=== PATIENT | female | born 1980 | race Asian ===

== ENCOUNTER → 2016-07-26 | Outpatient (CLI) | payer BC ==
[~2016-07-26] MED LIST: FERR-63; PREN-55; [UNRECOGNIZED DRUG - CODE]
== END | disposition home or self-care (01) ==
LOC: RAD 09:17
PROVIDERS: ATTEND Internal Medicine Geriatric Medicine
DX: M54.9 Dorsalgia, unspecified (principal)
CPT/HCPCS: 72100

== ENCOUNTER → 2016-09-01 | Outpatient (CLI) | payer BC ==
[2016-09-01 09:20] LABS: CHLORIDE 106 mEq/L (98-107); INDEX HEMOLYSI 1 (1-3); INDEX ICTERIC 1 (1-4); INDEX LIPEMIC 1 (1-3)
[2016-09-01 09:29] LABS: ALANINE AMINOTRANSFERASE 22 IU/L (13-61); ALBUMIN 3.3 g/dL (3.4-5.0); ANION GAP 13; CALCIUM 8.6 mg/dL (8.5-10.1); CARBON DIOXIDE 25 mEq/L (21-32); HDL CHOLESTEROL 60 mg/dL (40-59); LDL CHOLESTEROL 119 mg/dL (5-100); TRIGLYCERIDE 143 mg/dL (0-150); UREA NITROGEN BLOOD 12 mg/dL (7-21); eGFR > 60 mL/min (>60)
== END | disposition home or self-care (01) ==
LOC: LAB 08:44
PROVIDERS: ATTEND Internal Medicine Geriatric Medicine
DX: E66.01 Morbid (severe) obesity due to excess calories (principal)
CPT/HCPCS: 36415; 80053; 80061; 83036

== ENCOUNTER → 2016-12-06 | Outpatient (CLI) | payer BC ==
[2016-12-06 15:25] LABS: CLARITY URINE TURBID (CLEAR); COLOR URINE YELLOW (YELLOW); GLUCOSE URINE NEGATIVE (NEGATIVE); KETONES URINE NEGATIVE (NEGATIVE); LEUKOCYTE ESTERASE URINE 3+ (NEGATIVE); NITRITE URINE POSITIVE (NEGATIVE); OCCULT BLOOD URINE 3+ (NEGATIVE); PROTEIN URINE 3+ (NEGATIVE); SPECIFIC GRAVITY URINE 1.018 (1.005-1.030)
== END | disposition home or self-care (01) ==
LOC: LAB 14:48
PROVIDERS: ATTEND Internal Medicine Geriatric Medicine
DX: N39.0 Urinary tract infection, site not specified (principal)
CPT/HCPCS: 81001; 87077; 87086; 87186

== ENCOUNTER → 2017-05-18 | Outpatient (CLI) | payer BC ==
[2017-05-18 07:52] LABS: BASOPHILS % 0.8 % (0.0-2.0); EOSINOPHILS % 3.3 % (0.0-5.0); HEMATOCRIT. 37.4 % (36.0-48.0); HEMOGLOBIN. 12.1 g/dL (12.0-16.0); LYMPHOCYTES % 34.5 % (20.0-50.0); MEAN CORPUSCULAR HEMOGLOBIN 27.7 pg (28.0-32.0); MEAN CORPUSCULAR VOLUME 85.5 fL (81.0-99.0); MEAN PLATELET VOLUME 7.2 fl (7.4-10.4); MONOCYTES % 7.6 % (2.0-8.0); NEUTROPHILS % 53.8 % (40.0-76.0); PLATELET 382 x1000/uL (130-400); RED BLOOD CELL COUNT 4.38 mill/uL (4.2-5.4); RED CELL DISTRIBUTION WIDTH 13.7 % (11.6-14.6)
[2017-05-18 08:31] LABS: CARBON DIOXIDE 25 mEq/L (21-32); CHLORIDE 106 mEq/L (98-107)
== END | disposition home or self-care (01) ==
LOC: LAB 07:27
PROVIDERS: ATTEND Internal Medicine Geriatric Medicine
DX: I10 Essential (primary) hypertension (principal); R73.09 Other abnormal glucose
CPT/HCPCS: 36415; 80053; 83036; 85025

== ENCOUNTER → 2017-09-01 | Outpatient (CLI) | payer BC | END | disposition home or self-care (01) | LOC: MAMMO 11:23 | PROVIDERS: ATTEND Internal Medicine Geriatric Medicine | DX: Z12.31 Encounter for screening mammogram for malignant neoplasm of breast (principal) | CPT/HCPCS: 77067 ==

== ENCOUNTER → 2017-11-07 | Outpatient (CLI) | payer BC | END | disposition home or self-care (01) | LOC: RAD 09:53 | PROVIDERS: ATTEND Internal Medicine Geriatric Medicine | DX: M47.896 Other spondylosis, lumbar region (principal); M48.061 Spinal stenosis, lumbar region without neurogenic claudication | CPT/HCPCS: 72110 ==

== ENCOUNTER 2018-01-11 07:51 | Day surgery (SDC) | payer BC ==
[~2018-01-11] VITALS: Ht 170.2 cm; Wt 108.9 kg
[2018-01-11] MEDS ORDERED: POTASSIUM IODIDE/IODINE 20ML TOP SCH (08:30)
[2018-01-11] MEDS ORDERED: FERRIC SUBSULFATE SOLN 8GM TOP SCH (08:45)
[2018-01-11 08:57] LABS: BASOPHILS % 0.9 % (0.0-2.0); EOSINOPHILS % 2.5 % (0.0-5.0); HEMATOCRIT. 35.4 % (36.0-48.0); HEMOGLOBIN. 11.7 g/dL (12.0-16.0); LYMPHOCYTES % 32.7 % (20.0-50.0); MEAN CORPUSCULAR HEMOGLOBIN 26.3 pg (28.0-32.0); MEAN CORPUSCULAR VOLUME 79.6 fL (81.0-99.0); MEAN PLATELET VOLUME 7.8 fl (7.4-10.4); MONOCYTES % 6.7 % (2.0-8.0); NEUTROPHILS % 57.2 % (40.0-76.0); PLATELET 345 x1000/uL (130-400); RED BLOOD CELL COUNT 4.45 mill/uL (4.2-5.4); RED CELL DISTRIBUTION WIDTH 13.8 % (11.6-14.6)
[2018-01-11] MEDS ORDERED: SODIUM CHLORIDE 0.9% 1,000 ML IV SCH (09:00)
[2018-01-11 09:02] LABS: CHLORIDE 107 mEq/L (98-107)
[2018-01-11 09:05] LABS: UCG SCREEN NEGATIVE
[2018-01-11 09:05] LABS: PARTIAL THROMBOPLASTIN TIME 25.6 sec (23.4-31.0); PROTHROMBIN TIME 9.8 sec (9.1-11.1)
[2018-01-11 09:36] LABS: CLARITY URINE CLEAR (CLEAR); COLOR URINE YELLOW (YELLOW); KETONES URINE NEGATIVE (NEGATIVE); LEUKOCYTE ESTERASE URINE 1+ (NEGATIVE); NITRITE URINE NEGATIVE (NEGATIVE); OCCULT BLOOD URINE NEGATIVE (NEGATIVE); PH URINE 5.5 (4.5-8.0); PROTEIN URINE NEGATIVE (NEGATIVE); SPECIFIC GRAVITY URINE 1.021 (1.005-1.030); UROBILINOGEN URINE 0.2 E.U./dL (0.2-1.0)
[2018-01-11] MEDS ORDERED: NUVA RING VG (09:47)
[2018-01-11] MEDS ORDERED: AMLO1CAP5 PO (09:47)
[2018-01-11] MEDS ORDERED: ASPI-1159 PO (09:47)
[2018-01-11] MEDS ORDERED: SITA1TAB6 PO (09:47)
[2018-01-11] MEDS ORDERED: FENTANYL CITRATE/PF 50MCG/ML 5ML VIAL ONE (10:04)
[2018-01-11] MEDS ORDERED: MIDAZOLAM HCL 2 MG/2 ML VIAL ONE (10:05)
[2018-01-11] MEDS ORDERED: PROPOFOL 200MG/20ML VIAL IV ONE (10:05)
[2018-01-11] MEDS ORDERED: ONDANSETRON HCL 4MG/2ML INJ ONE (10:07)
[2018-01-11] MEDS ORDERED: LIDOCAINE HCL/PF 1% 10 MG/ML 5ML VIAL ONE (10:07)
[2018-01-11] MEDS ORDERED: DEXAMETHASONE 4MG/ML 1ML VIAL ONE (10:07)
[2018-01-11] MEDS ORDERED: KETOROLAC 30MG/ML VIAL ONE (10:07)
[2018-01-11] MEDS ORDERED: METOCLOPRAMIDE HCL 10MG/2ML VIAL ONE (10:07)
[2018-01-11] MEDS ORDERED: HYDROMORPHONE HCL/PF 2MG/ML (OR) ONE (10:44)
[2018-01-11] MEDS ORDERED: ONDANSETRON HCL 4MG/2ML INJ IV ONE (12:45)
[2018-01-11] MEDS ORDERED: ONDANSETRON HCL 4MG/2ML INJ IM ONE (13:30)
== END 2018-01-11 15:10 | disposition home or self-care (01) ==
LOC: OR 07:51
PROVIDERS: ATTEND Obstetrics & Gynecology Obstetrics
DX: N72 Inflammatory disease of cervix uteri (principal); N87.1 Moderate cervical dysplasia; M48.061 Spinal stenosis, lumbar region without neurogenic claudication; I10 Essential (primary) hypertension; E11.9 Type 2 diabetes mellitus without complications; Z79.899 Other long term (current) drug therapy; Z79.82 Long term (current) use of aspirin; Z83.3 Family history of diabetes mellitus; Z82.49 Family history of ischemic heart disease and other diseases of the circulatory system; Z98.890 Other specified postprocedural states
CPT/HCPCS: 36415; 57522; 80048; 81003; 81025; 82962; 85025; 85610; 85730; 88305; 88307; J1100; J1170; J1885; J2250; J2405; J2765; J3010; J3490; J7030; J7050; J2704

== ENCOUNTER → 2018-01-18 | Outpatient (CLI) | payer BC ==
[~2018-01-18] MED LIST changes: +AMLO1CAP5 PO; +ASPI-1159 PO; -FERR-63; +NUVA RING VG; -PREN-55; +SITA1TAB6 PO; -[UNRECOGNIZED DRUG - CODE]
[2018-01-18 08:44] LABS: BASOPHILS % 0.6 % (0.0-2.0); EOSINOPHILS % 4.1 % (0.0-5.0); HEMATOCRIT. 38.2 % (36.0-48.0); HEMOGLOBIN. 12.6 g/dL (12.0-16.0); LYMPHOCYTES % 41.3 % (20.0-50.0); MEAN CORPUSCULAR HEMOGLOBIN 26.8 pg (28.0-32.0); MEAN CORPUSCULAR VOLUME 81.1 fL (81.0-99.0); MEAN PLATELET VOLUME 7.6 fl (7.4-10.4); PLATELET 362 x1000/uL (130-400); RED BLOOD CELL COUNT 4.71 mill/uL (4.2-5.4); RED CELL DISTRIBUTION WIDTH 14.3 % (11.6-14.6)
[2018-01-18 08:56] LABS: CHLORIDE 107 mEq/L (98-107)
== END | disposition home or self-care (01) ==
LOC: LAB 08:25
PROVIDERS: ATTEND Internal Medicine Geriatric Medicine
DX: R73.09 Other abnormal glucose (principal)
CPT/HCPCS: 36415; 80053; 83036; 85025

== ENCOUNTER → 2018-09-25 | Outpatient (CLI) | payer BC ==
[2018-09-25 09:42] LABS: CLARITY URINE CLEAR (CLEAR); COLOR URINE YELLOW (YELLOW); KETONES URINE NEGATIVE (NEGATIVE); LEUKOCYTE ESTERASE URINE NEGATIVE (NEGATIVE); NITRITE URINE NEGATIVE (NEGATIVE); OCCULT BLOOD URINE NEGATIVE (NEGATIVE); PROTEIN URINE NEGATIVE (NEGATIVE); SPECIFIC GRAVITY URINE 1.017 (1.005-1.030); UROBILINOGEN URINE 0.2 E.U./dL (0.2-1.0)
[2018-09-25 09:53] LABS: CHLORIDE 107 mEq/L (98-107)
[2018-09-25 10:00] LABS: LDL CHOLESTEROL 121 mg/dL (5-100)
[2018-09-25 10:01] LABS: HDL CHOLESTEROL 55 mg/dL (40-59); TOTAL IRON BINDING CAPACITY 440 ug/dL (250-450)
[2018-09-25 10:11] LABS: BASOPHILS % 0.5 % (0.0-2.0); HEMATOCRIT. 38.7 % (36.0-48.0); HEMOGLOBIN. 12.9 g/dL (12.0-16.0); LYMPHOCYTES % 33.9 % (20.0-50.0); MEAN CORPUSCULAR HEMOGLOBIN 28.6 pg (28.0-32.0); MEAN CORPUSCULAR VOLUME 85.8 fL (81.0-99.0); MEAN PLATELET VOLUME 7.5 fl (7.4-10.4); MONOCYTES % 4.8 % (2.0-8.0); NEUTROPHILS % 58.8 % (40.0-76.0); PLATELET 417 x1000/uL (130-400); RED BLOOD CELL COUNT 4.51 mill/uL (4.2-5.4)
[2018-09-25 10:23] LABS: VITAMIN B12 SERUM 493 pg/mL (211-911)
== END | disposition home or self-care (01) ==
LOC: LAB 09:19
PROVIDERS: ATTEND Internal Medicine Geriatric Medicine
DX: Z00.01 Encounter for general adult medical examination with abnormal findings (principal); N39.0 Urinary tract infection, site not specified; I10 Essential (primary) hypertension; R73.09 Other abnormal glucose; E66.01 Morbid (severe) obesity due to excess calories
CPT/HCPCS: 36415; 80061; 82306; 82607; 83036; 83540; 83550; 84443; 86592

== ENCOUNTER → 2019-01-12 | Outpatient (CLI) | payer BC ==
[~2019-01-12] MED LIST changes: -ASPI-1159 PO; +ASPI-1393 PO
== END | disposition home or self-care (01) ==
LOC: MAMMO 12:35
PROVIDERS: ATTEND Internal Medicine Geriatric Medicine
DX: Z12.31 Encounter for screening mammogram for malignant neoplasm of breast (principal)
CPT/HCPCS: 77067

== ENCOUNTER → 2019-02-07 | Outpatient (CLI) | payer BC ==
[2019-02-07 08:35] LABS: BASOPHILS % 0.8 % (0.0-2.0); LYMPHOCYTES % 32.9 % (20.0-50.0); MEAN CORPUSCULAR VOLUME 86.9 fL (81.0-99.0); MEAN PLATELET VOLUME 7.7 fl (7.4-10.4); MONOCYTES % 4.7 % (2.0-8.0); NEUTROPHILS % 59.6 % (40.0-76.0); PLATELET 380 x1000/uL (130-400); RED BLOOD CELL COUNT 4.49 mill/uL (4.2-5.4); RED CELL DISTRIBUTION WIDTH 14.1 % (11.6-14.6)
[2019-02-07 08:36] LABS: CHLORIDE 108 mEq/L (98-107)
[2019-02-07 08:44] LABS: TOTAL IRON BINDING CAPACITY 437 ug/dL (250-450)
[2019-02-07 09:08] LABS: CLARITY URINE CLEAR (CLEAR); COLOR URINE YELLOW (YELLOW); KETONES URINE NEGATIVE (NEGATIVE); LEUKOCYTE ESTERASE URINE 1+ (NEGATIVE); NITRITE URINE NEGATIVE (NEGATIVE); OCCULT BLOOD URINE TRACE (NEGATIVE); PROTEIN URINE NEGATIVE (NEGATIVE); SPECIFIC GRAVITY URINE 1.009 (1.005-1.030); UROBILINOGEN URINE 0.2 E.U./dL (0.2-1.0)
[2019-02-07 09:14] LABS: VITAMIN B12 SERUM 494 pg/mL (211-911)
[2019-02-08 09:11] LABS: VITAMIN D 25-OH 29.1 ng/mL (30.0-100.0)
== END | disposition home or self-care (01) ==
LOC: LAB 07:34
PROVIDERS: ATTEND Internal Medicine Geriatric Medicine
DX: Z00.00 Encounter for general adult medical examination without abnormal findings (principal); I10 Essential (primary) hypertension; R73.09 Other abnormal glucose; E66.01 Morbid (severe) obesity due to excess calories; N39.0 Urinary tract infection, site not specified
CPT/HCPCS: 36415; 81003; 82306; 82607; 83036; 83540; 83550; 84443; 86003; 86005; 86592

== ENCOUNTER → 2019-05-11 | Outpatient (CLI) | payer BC ==
[~2019-05-11] MED LIST changes: -ASPI-1393 PO; +ASPI-1497 PO
[2019-05-11 10:14] LABS: CHLORIDE 108 mEq/L (98-107)
[2019-05-11 10:22] LABS: BASOPHILS % 0.7 % (0.0-2.0); EOSINOPHILS % 2.4 % (0.0-5.0); HEMATOCRIT. 41.1 % (36.0-48.0); HEMOGLOBIN. 13.6 g/dL (12.0-16.0); LYMPHOCYTES % 34.1 % (20.0-50.0); MEAN CORPUSCULAR HEMOGLOBIN 28.8 pg (28.0-32.0); MEAN CORPUSCULAR VOLUME 87.1 fL (81.0-99.0); MEAN PLATELET VOLUME 7.7 fl (7.4-10.4); NEUTROPHILS % 57.8 % (40.0-76.0); PLATELET 394 x1000/uL (130-400); RED BLOOD CELL COUNT 4.71 mill/uL (4.2-5.4); RED CELL DISTRIBUTION WIDTH 14.4 % (11.6-14.6)
== END | disposition home or self-care (01) ==
LOC: LAB 09:08
PROVIDERS: ATTEND Internal Medicine Geriatric Medicine
DX: Z01.82 Encounter for allergy testing (principal); I10 Essential (primary) hypertension; R73.09 Other abnormal glucose
CPT/HCPCS: 36415; 80053; 83036; 85025

== ENCOUNTER → 2019-12-14 | Outpatient (CLI) | payer BC ==
[2019-12-14 12:24] LABS: BASOPHILS % 0.9 % (0.0-2.0); EOSINOPHILS % 1.9 % (0.0-5.0); HEMATOCRIT. 39.9 % (36.0-48.0); HEMOGLOBIN. 13.5 g/dL (12.0-16.0); LYMPHOCYTES % 37.4 % (20.0-50.0); MEAN CORPUSCULAR HEMOGLOBIN 29.8 pg (28.0-32.0); MEAN CORPUSCULAR VOLUME 88.3 fL (81.0-99.0); MONOCYTES % 5.9 % (2.0-8.0); NEUTROPHILS % 53.9 % (40.0-76.0); PLATELET 419 x1000/uL (130-400); RED BLOOD CELL COUNT 4.52 mill/uL (4.2-5.4)
[2019-12-14 12:30] LABS: CLARITY URINE CLEAR (CLEAR); COLOR URINE YELLOW (YELLOW); KETONES URINE NEGATIVE (NEGATIVE); LEUKOCYTE ESTERASE URINE NEGATIVE (NEGATIVE); NITRITE URINE NEGATIVE (NEGATIVE); OCCULT BLOOD URINE NEGATIVE (NEGATIVE); PH URINE 5.5 (4.5-8.0); PROTEIN URINE NEGATIVE (NEGATIVE); SPECIFIC GRAVITY URINE 1.017 (1.005-1.030); UROBILINOGEN URINE 0.2 E.U./dL (0.2-1.0)
[2019-12-14 13:24] LABS: CHLORIDE 105 mEq/L (98-107)
[2019-12-14 13:32] LABS: HDL CHOLESTEROL 61 mg/dL (40-59); LDL CHOLESTEROL 128 mg/dL (5-100); TOTAL IRON BINDING CAPACITY 446 ug/dL (250-450)
[2019-12-14 18:32] LABS: VITAMIN B12 SERUM 483 pg/mL (211-911)
== END | disposition home or self-care (01) ==
LOC: LAB 11:37
PROVIDERS: ATTEND Internal Medicine Geriatric Medicine
DX: Z00.01 Encounter for general adult medical examination with abnormal findings (principal); E78.5 Hyperlipidemia, unspecified; N39.0 Urinary tract infection, site not specified; I10 Essential (primary) hypertension; E11.649 Type 2 diabetes mellitus with hypoglycemia without coma
CPT/HCPCS: 36415; 80053; 80061; 81003; 82306; 82607; 83036; 83540; 83550; 84443; 85025; 86592

== ENCOUNTER → 2020-01-24 | Outpatient (CLI) | payer BC | END | disposition home or self-care (01) | LOC: MRI 12:47 | PROVIDERS: ATTEND Internal Medicine Geriatric Medicine | DX: M48.061 Spinal stenosis, lumbar region without neurogenic claudication (principal); M47.26 Other spondylosis with radiculopathy, lumbar region | CPT/HCPCS: 72148 ==

== ENCOUNTER → 2020-01-28 | Outpatient (CLI) | payer BC | END | disposition home or self-care (01) | LOC: LAB 11:31 | PROVIDERS: ATTEND Internal Medicine Geriatric Medicine | DX: Z20.828 Contact with and (suspected) exposure to other viral communicable diseases (principal); Z03.89 Encounter for observation for other suspected diseases and conditions ruled out | CPT/HCPCS: C9803; U0003 ==

== ENCOUNTER → 2020-01-30 | Outpatient (CLI) | payer BC | END | disposition home or self-care (01) | LOC: MAMMO 14:09 | PROVIDERS: ATTEND Internal Medicine Geriatric Medicine | DX: Z12.31 Encounter for screening mammogram for malignant neoplasm of breast (principal) | CPT/HCPCS: 77067 ==

== ENCOUNTER → 2020-04-14 | Outpatient (CLI) | payer BC ==
[2020-04-14 11:34] LABS: BASOPHILS % 0.9 % (0.0-2.0); EOSINOPHILS % 1.3 % (0.0-5.0); HEMATOCRIT. 37.6 % (36.0-48.0); HEMOGLOBIN. 12.6 g/dL (12.0-16.0); LYMPHOCYTES % 34.8 % (20.0-50.0); MEAN CORPUSCULAR HEMOGLOBIN 29.6 pg (28.0-32.0); MEAN CORPUSCULAR VOLUME 88.1 fL (81.0-99.0); MEAN PLATELET VOLUME 7.2 fl (7.4-10.4); MONOCYTES % 5.3 % (2.0-8.0); NEUTROPHILS % 57.7 % (40.0-76.0); PLATELET 338 x1000/uL (130-400); RED BLOOD CELL COUNT 4.26 mill/uL (4.2-5.4); RED CELL DISTRIBUTION WIDTH 13.9 % (11.6-14.6)
[2020-04-14 11:43] LABS: CHLORIDE 107 mEq/L (98-107)
== END | disposition home or self-care (01) ==
LOC: LAB 08:42
PROVIDERS: ATTEND Internal Medicine Geriatric Medicine
DX: I10 Essential (primary) hypertension (principal); E66.01 Morbid (severe) obesity due to excess calories; E11.628 Type 2 diabetes mellitus with other skin complications
CPT/HCPCS: 36415; 80053; 83036; 85025

== ENCOUNTER → 2021-03-11 | Outpatient (CLI) | payer BC ==
[2021-03-11 13:10] LABS: BASOPHILS % 0.9 % (0.0-2.0); EOSINOPHILS % 1.9 % (0.0-5.0); HEMATOCRIT. 38.3 % (36.0-48.0); HEMOGLOBIN. 12.6 g/dL (12.0-16.0); MEAN CORPUSCULAR HEMOGLOBIN 28.8 pg (28.0-32.0); MEAN CORPUSCULAR VOLUME 87.5 fL (81.0-99.0); MEAN PLATELET VOLUME 7.1 fl (7.4-10.4); MONOCYTES % 6.5 % (2.0-8.0); NEUTROPHILS % 51.7 % (40.0-76.0); PLATELET 376 x1000/uL (130-400); RED BLOOD CELL COUNT 4.38 mill/uL (4.2-5.4); RED CELL DISTRIBUTION WIDTH 13.4 % (11.6-14.6)
[2021-03-11 13:16] LABS: CLARITY URINE CLEAR (CLEAR); COLOR URINE YELLOW (YELLOW); KETONES URINE NEGATIVE (NEGATIVE); LEUKOCYTE ESTERASE URINE NEGATIVE (NEGATIVE); NITRITE URINE NEGATIVE (NEGATIVE); OCCULT BLOOD URINE 2+ (NEGATIVE); PROTEIN URINE NEGATIVE (NEGATIVE); SPECIFIC GRAVITY URINE 1.008 (1.005-1.030); UROBILINOGEN URINE 0.2 E.U./dL (0.2-1.0)
[2021-03-11 13:55] LABS: CHLORIDE 107 mEq/L (98-107)
[2021-03-11 14:02] LABS: LDL CHOLESTEROL 116 mg/dL (5-100); TOTAL IRON BINDING CAPACITY 377 ug/dL (250-450)
[2021-03-11 14:17] LABS: HDL CHOLESTEROL 53 mg/dL (40-59)
[2021-03-11 14:21] LABS: HEPATITIS B SURFACE ANTIGEN NEGATIVE
== END | disposition home or self-care (01) ==
LOC: MRI 12:33
PROVIDERS: ATTEND Internal Medicine Geriatric Medicine
DX: Z12.31 Encounter for screening mammogram for malignant neoplasm of breast (principal); M48.02 Spinal stenosis, cervical region; M54.12 Radiculopathy, cervical region; M25.78 Osteophyte, vertebrae; Z00.01 Encounter for general adult medical examination with abnormal findings; N39.0 Urinary tract infection, site not specified; E11.628 Type 2 diabetes mellitus with other skin complications; E66.01 Morbid (severe) obesity due to excess calories; I10 Essential (primary) hypertension; E78.5 Hyperlipidemia, unspecified
CPT/HCPCS: 36415; 72141; 77063; 77067; 80053; 80061; 81003; 82306; 83036; 83540; 83550; 85025; 86592; 86705; 86709; 86803; 87340

== ENCOUNTER → 2021-06-16 | Outpatient (CLI) | payer BC ==
[2021-06-16 10:00] LABS: BASOPHILS % 0.9 % (0.0-2.0); EOSINOPHILS % 1.6 % (0.0-5.0); HEMATOCRIT. 38.2 % (36.0-48.0); HEMOGLOBIN. 12.7 g/dL (12.0-16.0); LYMPHOCYTES % 30.6 % (20.0-50.0); MEAN CORPUSCULAR HEMOGLOBIN 28.9 pg (28.0-32.0); MEAN CORPUSCULAR VOLUME 86.9 fL (81.0-99.0); MEAN PLATELET VOLUME 7.5 fl (7.4-10.4); MONOCYTES % 6.3 % (2.0-8.0); NEUTROPHILS % 60.6 % (40.0-76.0); PLATELET 397 x1000/uL (130-400); RED CELL DISTRIBUTION WIDTH 13.5 % (11.6-14.6)
[2021-06-16 10:05] LABS: CHLORIDE 107 mEq/L (98-107)
[2021-06-16 10:12] LABS: LDL CHOLESTEROL 101 mg/dL (5-100)
[2021-06-16 10:13] LABS: HDL CHOLESTEROL 45 mg/dL (40-59)
== END | disposition home or self-care (01) ==
LOC: LAB 08:59
PROVIDERS: ATTEND Internal Medicine Geriatric Medicine
DX: E11.649 Type 2 diabetes mellitus with hypoglycemia without coma (principal); E78.5 Hyperlipidemia, unspecified
CPT/HCPCS: 36415; 80053; 80061; 83036; 85025

== ENCOUNTER → 2021-06-17 | Outpatient (CLI) | payer BC | END | disposition home or self-care (01) | LOC: RAD 11:20 | PROVIDERS: ATTEND Internal Medicine Geriatric Medicine | DX: M25.512 Pain in left shoulder (principal) | CPT/HCPCS: 71046; 73010; 73030 ==

== ENCOUNTER → 2021-11-18 | Outpatient (CLI) | payer BC ==
[2021-11-18 09:54] LABS: CHLORIDE 106 mEq/L (98-107)
[2021-11-18 10:00] LABS: BASOPHILS % 0.6 % (0.0-2.0); EOSINOPHILS % 1.5 % (0.0-5.0); HEMATOCRIT. 36.7 % (36.0-48.0); HEMOGLOBIN. 12.1 g/dL (12.0-16.0); MEAN CORPUSCULAR HEMOGLOBIN 28.4 pg (28.0-32.0); MEAN CORPUSCULAR VOLUME 86.3 fL (81.0-99.0); MEAN PLATELET VOLUME 7.6 fl (7.4-10.4); MONOCYTES % 6.5 % (2.0-8.0); NEUTROPHILS % 63.4 % (40.0-76.0); PLATELET 337 x1000/uL (130-400); RED BLOOD CELL COUNT 4.24 mill/uL (4.2-5.4); RED CELL DISTRIBUTION WIDTH 13.9 % (11.6-14.6)
[2021-11-18 10:11] LABS: HDL CHOLESTEROL 48 mg/dL (40-59); LDL CHOLESTEROL 96 mg/dL (5-100)
== END | disposition home or self-care (01) ==
LOC: LAB 09:26
PROVIDERS: ATTEND Internal Medicine Geriatric Medicine
DX: I10 Essential (primary) hypertension (principal); E78.5 Hyperlipidemia, unspecified; E11.649 Type 2 diabetes mellitus with hypoglycemia without coma; M79.2 Neuralgia and neuritis, unspecified
CPT/HCPCS: 36415; 80053; 80061; 83036; 84443; 85025

== ENCOUNTER → 2022-03-24 | Outpatient (CLI) | payer BC ==
[2022-03-24 09:34] LABS: BASOPHILS % 0.8 % (0.0-2.0); EOSINOPHILS % 1.5 % (0.0-5.0); HEMOGLOBIN. 12.4 g/dL (12.0-16.0); LYMPHOCYTES % 33.4 % (20.0-50.0); MEAN CORPUSCULAR VOLUME 86.9 fL (81.0-99.0); MONOCYTES % 5.9 % (2.0-8.0); NEUTROPHILS % 58.4 % (40.0-76.0); PLATELET 373 x1000/uL (130-400); RED BLOOD CELL COUNT 4.26 mill/uL (4.2-5.4)
[2022-03-24 12:18] LABS: CHLORIDE 107 mEq/L (98-107)
[2022-03-24 12:46] LABS: HDL CHOLESTEROL 48 mg/dL (40-59); LDL CHOLESTEROL 107 mg/dL (5-100)
[2022-03-28 05:08] LABS: QFT MITOGEN VALUE >10.00 IU/mL (.); QFT TB GOLD PLUS Negative (Negative)
== END | disposition home or self-care (01) ==
LOC: LAB 09:14
PROVIDERS: ATTEND Internal Medicine Geriatric Medicine
DX: I10 Essential (primary) hypertension (principal); E11.69 Type 2 diabetes mellitus with other specified complication
CPT/HCPCS: 36415; 80053; 80061; 83036; 85025; 86480

== ENCOUNTER → 2022-04-19 | Outpatient (CLI) | payer BC | END | disposition home or self-care (01) | LOC: MAMMO 10:21 | PROVIDERS: ATTEND Internal Medicine Geriatric Medicine | DX: Z12.31 Encounter for screening mammogram for malignant neoplasm of breast (principal) | CPT/HCPCS: 77067 ==

== ENCOUNTER → 2022-12-08 | Outpatient (CLI) | payer BC ==
[2022-12-08 10:03] LABS: CLARITY URINE CLEAR (CLEAR); COLOR URINE YELLOW (YELLOW); GLUCOSE URINE NEGATIVE (NEGATIVE); KETONES URINE NEGATIVE (NEGATIVE); LEUKOCYTE ESTERASE URINE NEGATIVE (NEGATIVE); NITRITE URINE NEGATIVE (NEGATIVE); OCCULT BLOOD URINE NEGATIVE (NEGATIVE); PH URINE 5.5 (4.5-8.0); PROTEIN URINE NEGATIVE (NEGATIVE); SPECIFIC GRAVITY URINE 1.009 (1.005-1.030); UROBILINOGEN URINE 0.2 E.U./dL (0.2-1.0)
[2022-12-08 10:16] LABS: CALCIUM 8.8 mg/dL (8.5-10.1); CHLORIDE 107 mEq/L (98-107); INDEX HEMOLYSI 3 (1-3); INDEX ICTERIC 1 (1-4); INDEX LIPEMIC 1 (1-3); POTASSIUM 4.3 mEq/L (3.5-5.1); SODIUM 135 mEq/L (136-145)
[2022-12-08 10:29] LABS: CHOLESTEROL 155 mg/dL (<200)
[2022-12-08 10:30] LABS: ALANINE AMINOTRANSFERASE 28 IU/L (13-61); ALBUMIN 3.6 g/dL (3.4-5.0); ASPARTATE AMINOTRANSFERASE 19 IU/L (15-37); BILIRUBIN TOTAL 0.2 mg/dL (0.1-1.0); CARBON DIOXIDE 24 mEq/L (21-32); CREATININE 0.5 mg/dL (0.6-1.3); GLUCOSE 163 mg/dL (70-105); HDL CHOLESTEROL 46 mg/dL (40-59); IRON 57 ug/dL (50-175); LDL CHOLESTEROL 101 mg/dL (5-100); PROTEIN TOTAL 8.1 g/dL (6.0-8.3); THYROID STIMULATING HORMONE 0.79 uIU/mL (0.36-3.74); TOTAL IRON BINDING CAPACITY 385 ug/dL (250-450); TRIGLYCERIDE 69 mg/dL (0-150); UREA NITROGEN BLOOD 13 mg/dL (7-21); URIC ACID 4.9 mg/dL (2.6-7.2)
[2022-12-08 10:46] LABS: VITAMIN B12 SERUM 666 pg/mL (211-911)
[2022-12-09 08:11] LABS: FOLICLE STIMULATING HORMONE 2.7 mIU/mL (.); VITAMIN D 25-OH 33.9 ng/mL (30.0-100.0)
== END | disposition home or self-care (01) ==
LOC: LAB 09:23
PROVIDERS: ATTEND Internal Medicine Geriatric Medicine
DX: Z00.01 Encounter for general adult medical examination with abnormal findings (principal); I11.9 Hypertensive heart disease without heart failure; E11.59 Type 2 diabetes mellitus with other circulatory complications
CPT/HCPCS: 36415; 80053; 80061; 81003; 82306; 82607; 82746; 83001; 83036; 83540; 83550; 84443; 84550

== ENCOUNTER → 2023-04-11 | Outpatient (CLI) | payer BC ==
[2023-04-11 10:37] LABS: EOSINOPHILS % 1.2 % (0.0-5.0); HEMATOCRIT. 37.9 % (36.0-48.0); HEMOGLOBIN. 11.9 g/dL (12.0-16.0); LYMPHOCYTES % 38.7 % (20.0-50.0); MEAN CORPUSCULAR HGB CONC 31.5 g/dL (31.0-37.0); MEAN CORPUSCULAR VOLUME 89.1 fL (81.0-99.0); MEAN PLATELET VOLUME 7.2 fl (7.4-10.4); MONOCYTES % 10.3 % (2.0-8.0); NEUTROPHILS % 48.8 % (40.0-76.0); PLATELET 356 x1000/uL (130-400); RED BLOOD CELL COUNT 4.26 mill/uL (4.2-5.4); RED CELL DISTRIBUTION WIDTH 13.9 % (11.6-14.6); WHITE BLOOD COUNT 5.4 x1000/uL (4.5-11.0)
[2023-04-11 11:24] LABS: ALANINE AMINOTRANSFERASE 10 IU/L (10-49); ALBUMIN 4.3 g/dL (3.2-4.8); ASPARTATE AMINOTRANSFERASE 15 IU/L (<34); BILIRUBIN TOTAL 0.3 mg/dL (0.1-1.0); CALCIUM 8.9 mg/dL (8.7-10.4); CARBON DIOXIDE 25 mEq/L (21-32); CHLORIDE 106 mEq/L (98-107); CREATININE 0.6 mg/dL (0.6-1.0); GLUCOSE 104 mg/dL (70-105); POTASSIUM 3.8 mEq/L (3.5-5.1); SODIUM 138 mEq/L (136-145); UREA NITROGEN BLOOD 6 mg/dL (9-23)
== END | disposition home or self-care (01) ==
LOC: LAB 10:09
PROVIDERS: ATTEND Internal Medicine Geriatric Medicine
DX: E11.59 Type 2 diabetes mellitus with other circulatory complications (principal)
CPT/HCPCS: 36415; 80053; 83036; 85025

== ENCOUNTER → 2023-06-21 | Outpatient (CLI) | payer BC | END | disposition home or self-care (01) | LOC: MAMMO 12:43 | PROVIDERS: ATTEND Internal Medicine Geriatric Medicine | DX: Z12.31 Encounter for screening mammogram for malignant neoplasm of breast (principal) | CPT/HCPCS: 77063; 77067 ==

== ENCOUNTER → 2023-08-31 | Outpatient (CLI) | payer BC ==
[2023-08-31 09:49] LABS: BASOPHILS % 0.5 % (0.0-2.0); EOSINOPHILS % 1.6 % (0.0-5.0); HEMATOCRIT. 35.5 % (36.0-48.0); HEMOGLOBIN. 11.9 g/dL (12.0-16.0); LYMPHOCYTES % 33.5 % (20.0-50.0); MEAN CORPUSCULAR HEMOGLOBIN 29.6 pg (28.0-32.0); MEAN CORPUSCULAR HGB CONC 33.5 g/dL (31.0-37.0); MEAN CORPUSCULAR VOLUME 88.2 fL (81.0-99.0); MEAN PLATELET VOLUME 6.8 fl (7.4-10.4); MONOCYTES % 5.4 % (2.0-8.0); PLATELET 387 x1000/uL (130-400); RED BLOOD CELL COUNT 4.03 mill/uL (4.2-5.4); RED CELL DISTRIBUTION WIDTH 14.2 % (11.6-14.6); WHITE BLOOD COUNT 6.4 x1000/uL (4.5-11.0)
[2023-08-31 10:26] LABS: CHLORIDE 106 mEq/L (98-107); POTASSIUM 4.2 mEq/L (3.5-5.1); SODIUM 138 mEq/L (136-145)
[2023-08-31 10:28] LABS: CALCIUM 8.6 mg/dL (8.7-10.4); CARBON DIOXIDE 25 mEq/L (21-32)
[2023-08-31 10:33] LABS: CREATININE 0.6 mg/dL (0.6-1.0); GLUCOSE 111 mg/dL (70-105)
[2023-08-31 10:34] LABS: LDL CHOLESTEROL 94 mg/dL (5-100); TRIGLYCERIDE 80 mg/dL (0-150); UREA NITROGEN BLOOD 7 mg/dL (9-23)
[2023-08-31 10:35] LABS: ALANINE AMINOTRANSFERASE 9 IU/L (10-49); ALBUMIN 4.2 g/dL (3.2-4.8); ASPARTATE AMINOTRANSFERASE 13 IU/L (<34); CHOLESTEROL 148 mg/dL (<200); HDL CHOLESTEROL 50 mg/dL (>65)
[2023-08-31 10:36] LABS: BILIRUBIN TOTAL 0.4 mg/dL (0.1-1.0); PROTEIN TOTAL 7.2 g/dL (6.0-8.3); THYROID STIMULATING HORMONE 0.82 uIU/mL (0.55-4.78)
[2023-08-31 11:27] LABS: FOLIC ACID (FOLATE) SERUM 15.92 ng/mL (>5.38)
== END | disposition home or self-care (01) ==
LOC: LAB 09:20
PROVIDERS: ATTEND Internal Medicine Geriatric Medicine
DX: I10 Essential (primary) hypertension (principal); E11.69 Type 2 diabetes mellitus with other specified complication
CPT/HCPCS: 36415; 80053; 80061; 82746; 83036; 84443; 85025

== ENCOUNTER → 2023-11-09 | Outpatient (CLI) | payer BC | END | disposition home or self-care (01) | LOC: LAB 09:28 | PROVIDERS: ATTEND Internal Medicine Geriatric Medicine | DX: Z32.00 Encounter for pregnancy test, result unknown (principal) | CPT/HCPCS: 36415; 84702 ==

== ENCOUNTER → 2023-11-23 | Outpatient (CLI) | payer BC | END | disposition home or self-care (01) | LOC: US 12:24 | PROVIDERS: ATTEND Obstetrics & Gynecology Obstetrics | DX: O20.0 Threatened abortion (principal); Z3A.01 Less than 8 weeks gestation of pregnancy; R10.2 Pelvic and perineal pain | CPT/HCPCS: 76801 ==

== ENCOUNTER → 2024-01-10 | Outpatient (CLI) | payer BC ==
[2024-01-10 11:09] LABS: BASOPHILS % 0.7 % (0.0-2.0); EOSINOPHILS % 1.2 % (0.0-5.0); HEMATOCRIT. 39.6 % (36.0-48.0); HEMOGLOBIN. 12.8 g/dL (12.0-16.0); LYMPHOCYTES % 36.8 % (20.0-50.0); MEAN CORPUSCULAR HGB CONC 32.3 g/dL (31.0-37.0); MEAN CORPUSCULAR VOLUME 89.7 fL (81.0-99.0); MEAN PLATELET VOLUME 7.3 fl (7.4-10.4); MONOCYTES % 7.9 % (2.0-8.0); NEUTROPHILS % 53.4 % (40.0-76.0); PLATELET 382 x1000/uL (130-400); RED BLOOD CELL COUNT 4.41 mill/uL (4.2-5.4); RED CELL DISTRIBUTION WIDTH 13.8 % (11.6-14.6); WHITE BLOOD COUNT 6.7 x1000/uL (4.5-11.0)
[2024-01-10 11:16] LABS: CHLORIDE 105 mEq/L (98-107); POTASSIUM 4.3 mEq/L (3.5-5.1); SODIUM 135 mEq/L (136-145)
[2024-01-10 11:17] LABS: CARBON DIOXIDE 23 mEq/L (21-32)
[2024-01-10 11:18] LABS: CALCIUM 9.3 mg/dL (8.7-10.4)
[2024-01-10 11:22] LABS: CREATININE 0.8 mg/dL (0.6-1.0); GLUCOSE 206 mg/dL (70-105)
[2024-01-10 11:23] LABS: UREA NITROGEN BLOOD 10 mg/dL (9-23)
[2024-01-10 11:24] LABS: ALANINE AMINOTRANSFERASE 59 IU/L (10-49); ALBUMIN 4.7 g/dL (3.2-4.8); ASPARTATE AMINOTRANSFERASE 39 IU/L (<34)
[2024-01-10 11:25] LABS: BILIRUBIN TOTAL 0.3 mg/dL (0.1-1.0); PROTEIN TOTAL 8.5 g/dL (6.0-8.3)
== END | disposition home or self-care (01) ==
LOC: LAB 09:56
PROVIDERS: ATTEND Internal Medicine Geriatric Medicine
DX: E11.69 Type 2 diabetes mellitus with other specified complication (principal)
CPT/HCPCS: 36415; 80053; 83036; 85025

== ENCOUNTER → 2025-03-13 | Outpatient (CLI) | payer BC ==
[2025-03-13 10:34] LABS: CLARITY URINE CLEAR (CLEAR); COLOR URINE DARK YELLOW (YELLOW); GLUCOSE URINE 2+ (NEGATIVE); KETONES URINE 1+ (NEGATIVE); LEUKOCYTE ESTERASE URINE NEGATIVE (NEGATIVE); NITRITE URINE NEGATIVE (NEGATIVE); OCCULT BLOOD URINE NEGATIVE (NEGATIVE); PH URINE 5.5 (4.5-8.0); PROTEIN URINE 1+ (NEGATIVE); SPECIFIC GRAVITY URINE 1.023 (1.005-1.030); UROBILINOGEN URINE 1.0 E.U./dL (0.2-1.0)
[2025-03-13 10:36] LABS: BASOPHILS % 0.6 % (0.0-2.0); EOSINOPHILS % 1.2 % (0.0-5.0); HEMATOCRIT. 42.8 % (36.0-48.0); HEMOGLOBIN. 14.0 g/dL (12.0-16.0); LYMPHOCYTES % 37.0 % (20.0-50.0); MEAN PLATELET VOLUME 7.4 fl (7.4-10.4); MONOCYTES % 6.8 % (2.0-8.0); NEUTROPHILS % 54.4 % (40.0-76.0); PLATELET 362 x1000/uL (130-400); RED BLOOD CELL COUNT 4.88 mill/uL (4.2-5.4); RED CELL DISTRIBUTION WIDTH 13.1 % (11.6-14.6)
[2025-03-13 10:50] LABS: HYALINE CASTS URINE 0-5 /lpf
[2025-03-13 10:52] LABS: SQUAMOUS EPITHELIAL CELL URINE 2+ /lpf (RARE/1+)
[2025-03-13 10:54] LABS: BACTERIA URINE 1+; RBC URINE 0-2 /hpf (0-2); WBC URINE 0-2 /hpf (0-2)
[2025-03-13 11:00] LABS: CREATININE 0.7 mg/dL (0.6-1.0); TRIGLYCERIDE 139 mg/dL (0-150)
[2025-03-13 11:01] LABS: LDL CHOLESTEROL 137 mg/dL (5-100); UREA NITROGEN BLOOD 8 mg/dL (9-23)
[2025-03-13 11:02] LABS: ASPARTATE AMINOTRANSFERASE 28 IU/L (<34); C REACTIVE PROTEIN HIGH SENS 5.96 mg/l (<1.00)
[2025-03-13 11:03] LABS: BILIRUBIN TOTAL 0.6 mg/dL (0.1-1.0); PROTEIN TOTAL 7.8 g/dL (6.0-8.3)
[2025-03-13 11:04] LABS: T4 FREE 1.51 ng/dL (0.89-1.76)
[2025-03-13 12:09] LABS: VITAMIN B12 SERUM 823 pg/mL (211-911)
[2025-03-13 12:24] LABS: FOLIC ACID (FOLATE) SERUM > 20.00 ng/mL (>5.38)
[2025-03-13 12:38] LABS: HEPATITIS A AB IGM NEGATIVE (Negative)
[2025-03-13 12:39] LABS: HEPATITIS B CORE AB IGM NEGATIVE (Negative); HEPATITIS C AB NON REACTIVE (Neg) (Negative)
[2025-03-14 09:07] LABS: CARCINOEMBRYONIC AG - SEND OUT 0.9 ng/mL (0.0-4.7); VITAMIN D 25-OH 22.8 ng/mL (30.0-100.0)
[2025-03-16 13:12] LABS: THYROXINE BINDING GLOBULIN 21.0 ug/mL (13-39)
== END | disposition home or self-care (01) ==
LOC: LAB 09:29
PROVIDERS: ATTEND Internal Medicine Geriatric Medicine
DX: I10 Essential (primary) hypertension (principal); Z00.01 Encounter for general adult medical examination with abnormal findings; Z79.899 Other long term (current) drug therapy
CPT/HCPCS: 36415; 80053; 80061; 80074; 81001; 81003; 82306; 82378; 82607; 82728; 82746; 83036; 84439; 84442; 84443; 84550; 85025; 86141; 86705; 86709; 87340

== ENCOUNTER → 2025-04-25 | Outpatient (CLI) | payer BC | END | disposition home or self-care (01) | LOC: MAMMO 09:03 | PROVIDERS: ATTEND Internal Medicine Geriatric Medicine | DX: Z12.31 Encounter for screening mammogram for malignant neoplasm of breast (principal); R92.323 Mammographic fibroglandular density, bilateral breasts; R92.1 Mammographic calcification found on diagnostic imaging of breast | CPT/HCPCS: 77063; 77067 ==